=== PATIENT | male | born 1950 | race Caucasian/White ===

== ENCOUNTER 2023-10-29 08:05 | Outpatient (CLI) | payer MEDICARE, OTHER | END 2023-10-29 08:06 | disposition home or self-care (01) | LOC: BICCT 08:05 | PROVIDERS: ATTEND Radiology Radiation Oncology | DX: C44.40 Unspecified malignant neoplasm of skin of scalp and neck (principal); C96.9 Malignant neoplasm of lymphoid, hematopoietic and related tissue, unspecified; L98.499 Non-pressure chronic ulcer of skin of other sites with unspecified severity | CPT/HCPCS: 70470; 70491 ==